=== PATIENT | female | born 1940 ===

== ENCOUNTER 2016-12-04 22:24 | Inpatient (IN) | payer MEDICARE ==
[2016-12-04] MEDS ORDERED: Sodium Chloride 0.9% 1,000 ML IV ONE (22:42)
[2016-12-04] MEDS ORDERED: Sodium Chloride 0.9% 1,000 ML ONE (22:45)
[2016-12-04 23:22] LABS: RBC URINE 3 /hpf (0-3); TRANSITIONAL EPITHIAL < 1 /hpf (0-3); URINE BACTERIA MOD (<OCC); URINE BILIRUBIN NEGATIVE (NEGATIVE); URINE COLOR Yellow (YELLOW); URINE GLUCOSE (UA) 3+ mg/dL (Normal); URINE HYALINE CAST 0-2 /lpf (0-2); URINE KETONE TRACE mg/dL (NEGATIVE); URINE PROTEIN 1+ mg/dL (NEGATIVE); URINE UROBILINOGEN NORMAL mg/dL (0.2-1.0); WBC URINE 45 /hpf (0-5)
[2016-12-04 23:23] LABS: URINE BLOOD TRACE (NEGATIVE); URINE LEUKOCYTE ESTERASE 3+ Leu/uL (Negative)
[2016-12-05 00:10] LABS: BASO % 0.2 % (0.0-2.0); LYMPH # 0.6 K/uL (1.0-4.3); LYMPH % 6.5 % (20.0-40.0); MEAN CELL VOLUME 86.7 fL (81.0-99.0); MEAN CORPUSCULAR HEMOGLOBIN 28.9 pg (27.0-31.0); MEAN CORPUSCULAR HGB CONC 33.3 g/dL (33.0-37.0); MEAN PLATELET VOLUME 7.6 fL (7.2-11.7); MONO # 0.8 K/uL (0.0-0.8); MONO % 8.5 % (0.0-10.0); PLATELET COUNT 161 K/uL (130-400); RED CELL DISTRIBUTION WIDTH 12.4 % (11.5-14.5); WHITE BLOOD COUNT 9.7 K/uL (4.8-10.8)
[2016-12-05 00:21] LABS: CHLORIDE 106 mmol/L (98-107); POTASSIUM 3.5 mmol/L (3.6-5.2); SODIUM 132 mmol/L (132-148)
[2016-12-05 00:24] LABS: ALKALINE PHOSPHATASE 53 U/L (38-126); ALT/SGPT 28 U/L (9-52); AST/SGOT 32 U/L (14-36); BILIRUBIN,TOTAL 0.8 mg/dL (0.2-1.3); BLOOD UREA NITROGEN 12 mg/dL (7-17); CARBON DIOXIDE 17 mmol/L (22-30); GFR AFRICAN-AMERICAN > 60; GLUCOSE,RANDOM 218 mg/dL (65-105); TOTAL PROTEIN 5.2 g/dL (6.3-8.3)
[2016-12-05 00:25] LABS: CALCIUM 6.1 mg/dl (8.6-10.4)
[2016-12-05] MEDS ORDERED: cefTRIAXone IV 1 gm in Dextros 50 ML IVPB STA (00:32)
[2016-12-05 00:33] LABS: INR 1.2
[2016-12-05] MEDS ORDERED: Azithromycin 500 MG in Sodium Chloride 0.9% 250 ML IVPB STA (00:33)
--- NOTE | 2016-12-05 00:36 | C.PDOC ---
History Of Present Illness 76 year old patient brought to the ED by ambulance after a visitor at home noticed she appeared confused. Patient also noted to have facial droop, left sided upper extremity and lower extremity weakness - symptoms resolved on ED arrival. Accucheck was 99 in the field. As per family, patient has a history of DM and asthma. She is compliant with herdiabetes medication, which includes "Metformin and some other pills", and there have been no recent adjustments to hese meds. She admits she did not eat lunch or dinner today; only had breakfast this morning. As per family (translating) patient denies chest pain, shortness of breath, palpitations, headache, dizziness, abdominal pain, nausea/ vomiting/diarrhea, dysuria, visual changes. Time Seen by Provider: 12/04/16 22:35 Chief Complaint (Nursing): Altered Mental Status History Per: Patient, EMS, Family History/Exam Limitations: Language Barrier Onset/Duration Of Symptoms: Mins (prior to arrival) Current Symptoms Are (Timing): Gone Usual Baseline: Alert Oriented Additional History Per: Family Past Medical History Reviewed: Historical Data, Nursing Documentation, Vital Signs Vital Signs: Last Vital Signs Temp 97.4 F L 12/07/16 15:59 Pulse 103 H 12/07/16 15:59 Resp 20 12/07/16 15:59 BP 126/61 12/07/16 15:59 Pulse Ox 97 12/07/16 15:59 - Medical History PMH: Diabetes, HTN Family History: States: No Known Family Hx - Social History Hx Alcohol Use: No Hx Substance Use: No - Immunization History Hx Tetanus Toxoid Vaccination: No Hx Influenza Vaccination: Yes Hx Pneumococcal Vaccination: Yes Review Of Systems Except As Marked, All Systems Reviewed And Found Negative. Constitutional: Negative for: Fever, Chills Cardiovascular: Negative for: Chest Pain, Palpitations Respiratory: Negative for: Cough, Shortness of Breath Gastrointestinal: Negative for: Nausea, Vomiting, Abdominal Pain, Diarrhea Neurological: Positive for: Confusion, Other (left upper and lower extremity weakness, facial droop). Negative for: Headache, Dizziness Physical Exam - Physical Exam Appears: Well, Non-toxic, No Acute Distress Skin: Warm, Dry Head: Atraumatic, Normacephalic Eye(s): bilateral: EOMI, Other (bilateral irregular pupils aprrox 1-2 mm. patient has a history of bilateral eye surgery.) Ear(s): Bilateral: Normal Oral Mucosa: Moist Neck: Normal, Normal ROM, Supple Cardiovascular: Rhythm Regular Respiratory: Normal Breath Sounds, No Rales, No Rhonchi, No Wheezing Gastrointestinal/Abdominal: Normal Exam, Bowel Sounds, Soft, No Tenderness Back: Normal Inspection, No CVA Tenderness, No Vertebral Tenderness Extremity: Normal ROM, No Tenderness, No Pedal Edema, No Calf Tenderness Extremity: Bilateral: Atraumatic Pulses: Left Dorsalis Pedis: Normal, Right Dorsalis Pedis: Normal Neurological/Psych: Oriented x3, Normal Speech, Normal Cognition, Normal Cranial Nerves, No Cerebellar Signs, Normal Motor (5/5 motor strength all ext), Normal Sensation, Normal Reflexes, No Dysarthria, No Romberg, Other ((+)normal finger to nose) ED Course And Treatment - Laboratory Results Result Diagrams: 12/06/16 06:26 12/07/16 07:03 ECG: Interpreted By Me, Viewed By Me (atrial fibrillation 115 bpm, normal axis, T wave inversions V5, V6, no acute ST changes) ECG Interpretation: Abnormal O2 Sat by Pulse Oximetry: 95 (room air) Pulse Ox Interpretation: Normal - Radiology CXR: Interpreted by Me, Viewed By Me (? right sided infiltrate ) - CT Scan/US Head CT Other Rad Studies (CT/US): Read By Radiologist (David Fitch MD), Radiology Report Reviewed CT/US Interpretation: EXAM: CT Head Without Intravenous Contrast. CLINICAL HISTORY: 76 years old, female; Signs and symptoms; Weakness, extremity; Bilateral. TECHNIQUE: Axial computed tomography images of the head/brain without intravenous contrast. This CT exam. was performed using one or more of the following dose reduction techniques: automated exposure. control, adjustment of the mA and/or kV according to patient size, and/or use of iterative. reconstruction technique. COMPARISON: No relevant prior studies available. FINDINGS: Brain: Mild atrophy. No intracranial hemorrhage. No mass. Few scattered subtle foci of decreased. attenuation within periventricular/subcortical white matter. No definite edema. Ventricles: No hydrocephalus. Bones/joints: No acute fracture. Soft tissues: Unremarkable. Vasculature: Atherosclerotic disease of intracranial arteries. Sinuses: Complete opacification of visualized RIGHT maxillary sinus. Small air-fluid level within. LEFT maxillary sinus. Scattered mild mucosal thickening of ethmoid, frontal sinuses. Mastoid air cells: No mastoid effusion. Orbits: Unremarkable as visualized. IMPRESSION: 1. Nonspecific white matter changes. Acute infarction may be CT occult within first 24 hours. If a. focal deficit persists, consider followup CT or MRI for further evaluation. 2. Sinus disease. 3. Incidental/non-acute findings are described above. Progress Note: Blood work, CT head, Chest x-ray and EKG ordered and reviewed. Patient given IV NS bolus. Patient given PO ASA after CT head (-) for bleed. IV rocephin and azithromycin given for pneumonia + UTI. IV Cardizem given for rapid atrial fibrillation, as well as SC Lovenox for new onset A fib. - Physician Consult Information Physician Contacted: Alvarado Rausch Outcome Of Conversation: Discussed patient with Dr. Nick Rausch who agrees with admission to his service. Critical Care Time - Critical Care Note Total Time (in mins): 40 Documented critical care: time excludes all time spent performing seperately billable procedures. NIHSS Stroke Scale - Date/Time Evaluation Performed Date Performed: 12/04/16 Time Performed: 22:25 When Was NIHSS Performed: Baseline - How Severe is the Stoke Level of Consciousness: 0=Alert LOC to Questions: 0=Both comments correct LOC to commands: 0=Obeys both correctly Best Gaze: 0=Normal Visual: 0=No visual loss Facial: 0=Normal Motor Arm - Left: 0=No drift Motor Arm - Right: 0=No drift Motor Leg - Left: 0=No drift Motor Leg - Right: 0=No drift Limb Ataxia: 0=Absent Sensory: 0=Normal Best Language: 0=No aphasia Dysarthia: 0=Normal articulation Extinction & Inattention (Neglect): 0=Normal, no object Score: 0 Severity Of Stroke: 0= No Stroke rTPA Inclusion/Exclusion - Refusal of Treatment Patient Refused Treatment: No - Inclusion Criteria for Altepase Patient is 18 years or Older: Yes Clinical DX Ischemic Stroke Cause Neurological Deficit: No Time of Onset Established Less Than 270 Mins Before TX Begin: Yes Risk/Benefit Discussed With Patient/Family Member Present: No Disposition - Disposition Disposition: HOSPITALIZED Disposition Time: 00:53 Condition: STABLE - Clinical Impression Clinical Impression: TIA (transient ischemic attack), New onset atrial fibrillation, Atrial fibrillation with RVR, UTI (urinary tract infection), Pneumonia, Hypoglycemia - Scribe Statement The provider has reviewed the documentation as recorded by the Scribe Aissatou Rausch Provider Attestation: All medical record entries made by the Scribe were at my direction and personally dictated by me. I have reviewed the chart and agree that the record accurately reflects my personal performance of the history, physical exam, medical decision making, and the department course for this patient. I have also personally directed, reviewed, and agree with the discharge instructions and disposition. Decision To Admit - Pt Status Changed To: Hospital Disposition Of: Inpatient - Admit Certification Admit to Inpatient:: After my assessment, the patient will require hospitalization for at least two midnights. This is because of the severity of symptoms shown, intensity of services needed, and/or the medical risk in this patient being treated as an outpatient. - InPatient: Physician Admission Certification:: see notes - . Bed Request Type: Telemetry Admitting Physician: Alvarado Rausch Patient Diagnosis: TIA (transient ischemic attack), New onset atrial fibrillation, Atrial fibrillation with RVR, UTI (urinary tract infection), Pneumonia, Hypoglycemia
--- NOTE | 2016-12-05 00:36 | C.PDOC ---
Time Seen by Provider: 12/04/16 22:35 Chief Complaint (Nursing): Altered Mental Status Past Medical History Vital Signs: Last Vital Signs Temp 97.3 F L 12/04/16 22:32 Pulse 102 H 12/04/16 22:32 Resp 20 12/04/16 22:32 BP 161/53 H 12/04/16 22:32 Pulse Ox 95 12/04/16 22:32 - Medical History PMH: HTN - Social History Hx Alcohol Use: No Hx Substance Use: No - Immunization History Hx Tetanus Toxoid Vaccination: No Hx Influenza Vaccination: Yes Hx Pneumococcal Vaccination: Yes ED Course And Treatment - Laboratory Results Result Diagrams: 12/04/16 23:55 O2 Sat by Pulse Oximetry: 95
[2016-12-05] MEDS ORDERED: cefTRIAXone IV 1 gm in Dextros 50 ML IVPB ONE (00:37)
[2016-12-05] MEDS ORDERED: Azithromycin 500mg/250ML NS 500 MG/250 ML BAG IVPB ONE (00:37)
[2016-12-05] MEDS ORDERED: Enoxaparin 40 mg Syringe SC ONE (00:43)
[2016-12-05] MEDS ORDERED: Potassium Chloride 20 mEq ER Tab PO STA (00:43)
[2016-12-05 00:50] LABS: NEUTROPHIL 83 % (50-75); TOTAL CELLS COUNTED 100
[2016-12-05] MEDS ORDERED: Potassium Chloride 20 mEq ER Tab PO ONE (00:57)
[2016-12-05] MEDS ORDERED: Enoxaparin 60 mg Syringe ONE (01:04)
[2016-12-05] MEDS: Albuterol-Ipratrop 3 mg / 0.5 (3 ml) UD INH SCH ×3 (07:23→19:32)
--- NOTE | 2016-12-05 08:23 | CT ---
PROCEDURE: CT HEAD WITHOUT CONTRAST. HISTORY: WEAKNESS COMPARISON: None available. TECHNIQUE: Axial computed tomography images were obtained through the head/brain without intravenous contrast. Radiation dose: Total exam DLP = 785.11 mGy-cm. This CT exam was performed using one or more of the following dose reduction techniques: Automated exposure control, adjustment of the mA and/or kV according to patient size, and/or use of iterative reconstruction technique. FINDINGS: HEMORRHAGE: No intracranial hemorrhage. BRAIN: No mass effect or edema. Mild periventricular white matter lucency consistent with chronic microvascular ischemic change. No evidence of acute infarct. VENTRICLES: Unremarkable. No hydrocephalus. CALVARIUM: Unremarkable. PARANASAL SINUSES: Chronic ethmoid sinusitis. Complete opacification of right maxillary antrum. Air-fluid level in left maxillary antrum may reflect acute sinusitis. Please correlate clinically. MASTOID AIR CELLS: Unremarkable as visualized. No inflammatory changes. OTHER FINDINGS: None. IMPRESSION: No intracranial mass, hemorrhage or evidence of acute infarct. Chronic microvascular ischemic change. Chronic paranasal sinusitis with possible acute left maxillary sinusitis. . Please correlate clinically. Preliminary interpretation of this examination was reported by [facility] at 11:43 p.m. on 12/04/2016. There is concurrence of this report with the preliminary interpretation.
--- NOTE | 2016-12-05 08:33 | RAD ---
PROCEDURE: CHEST RADIOGRAPH, 1 VIEW HISTORY: WEAKNESS COMPARISON: None available. FINDINGS: LUNGS: Patchy increased markings at both lung bases ; right greater than left which may represent mild atelectasis and or infiltrate. Clinical correlation. Biapical pleural thickening with upper lobe granulomatous changes. Minimal right midlung atelectasis. Minimal scattered nodularity at the right lung apex. PLEURA: No pneumothorax or pleural fluid seen. CARDIOVASCULAR: Calcification at the aortic knob. Tortuous aorta. OSSEOUS STRUCTURES: Degenerative changes in the spine and shoulders. VISUALIZED UPPER ABDOMEN: Normal. OTHER FINDINGS: None. IMPRESSION: Patchy increased markings at both lung bases ; right greater than left which may represent mild atelectasis and or infiltrate. Clinical correlation. Biapical pleural thickening with upper lobe granulomatous changes. Minimal right midlung atelectasis. Minimal scattered nodularity at the right lung apex.
[2016-12-05] MEDS: Enoxaparin 60 mg Syringe SC SCH (09:33)
[2016-12-05] MEDS: cefTRIAXone IV 1 gm in Dextros 50 ML IVPB SCH (09:33)
[2016-12-05] MEDS ORDERED: LEVOCETIRIZINE DIHYDROCHLORIDE PO SCH (10:00)
--- NOTE | 2016-12-05 11:05 | CON ---
DATE: 12/05/2016 REASON FOR CONSULTATION: Transient left upper and lower extremity ____, and facial droop. HISTORY OF PRESENT ILLNESS: The patient was at home and after a visitor, a friend visited the home, she found the patient confused and had a facial droop and left-sided upper extremity and lower extrem ity weakness. The patient's facial droop resolved upon arrival of the Emergency Room. Accu-Chek was 99 but, as per the nurse, the Accu-Chek was 35 at the arrival of EMS at the field. The patient has a history of diabetes and asthma. The patient did not have her lunch before the episode. She only h ad breakfast in the morning. No associated chest pain, shortness of breath, palpitation or headache. The patient woke up, not confused. The patient stated that she was not confused. No ____ or urine incontinence or tongue biting. VITAL SIGNS: Blood pressure 147/64, pulse 113, respirations 34. PAST MEDICAL HISTORY: Diabetes, hypertension. MEDICATIONS: Metformin, albuterol, rosuvastatin, diltiazem, enoxaparin, pantoprazole, ceftriaxone. REVIEW OF SYSTEMS: As per H and P and ER note. FAMILY HISTORY: Hypertension. MENTAL STATUS: The patient is alert, awake, oriented x 3. Normal naming, repetition and comprehensi on. CRANIAL NERVES: Pupils 3 mm, bilaterally reactive. No facial asymmetry. No field defect. Tongue m idline. Gag intact. Accessory nerve intact. MOTOR: Normal tone in upper and lower extremities. No pronation drift. No tremors, action or resti ng or postural. No myoclonus. Upper extremity: Deltoid, elbow and spool salvager 5/5. Lower extremities: H ip flexion, knee flexion/extension, ankle 5/5. REFLEXES: Deep tendon reflexes 1-2 in upper and lower extremities, plantar flexion both sides ___. SENSORY: Pinprick, light touch, position intact. COORDINATION: [id number] intact. Romberg is negative. The patient is able to stand without diz ziness. IMAGING: CAT scan of the brain did not reveal significant findings. There are chronic periventricul ar white matter changes most likely secondary to small vessel ischemic changes secondary to hypertens ion and diabetes. IMPRESSION: Transient slurred speech, left facial asymmetry and left-sided weakness probably seconda ry to hypoglycemia. Considering the patient with transient ischemic attack and it could be secondary to hypoglycemia, but because of the significant asymmetry on the left side/transient weakness on the left side and the face, I would do MRI and carotid Doppler. My feeling is it is still probably seco ndary to hypoglycemia. Will do EEG as well to rule out seizures. Thank you for the consultation. Dr. Skinner will follow up the patient tomorrow. Jonathan Fernández MD cc: [id number] TT: 12/05/2016 11:04:24 Confirmation # [id number] Dictation # [id number] mn
--- NOTE | 2016-12-05 12:43 | CARD ---
APPROVED REPORT EKG Measurement Heart [id number] <Conclusion> Atrial fibrillation with rapid ventricular response Anteroseptal infarct, age undetermined T wave abnormality, consider lateral ischemia Abnormal ECG
[2016-12-05] MEDS: Azithromycin 500mg/250ML NS 500 MG/250 ML BAG IVPB SCH (13:58)
--- NOTE | 2016-12-05 15:08 | VASCLAB ---
PROCEDURE: HISTORY: CVA COMPARISON: None available. TECHNIQUE: Grayscale and duplex Doppler evaluation of the cervical carotid and vertebral arteries were performed. The common carotid, carotid bifurcations and cervical Internal Carotid Artery (ICA) and proximal External Carotid Artery (ECA) were evaluated. The vertebral arteries were evaluated for gross patency and flow direction. Report prepared by Balta Franks, BS, RVT FINDINGS: RIGHT CAROTID ARTERIES: 1. Common Carotid Artery: No significant focal plaque formation of the right common carotid artery. Maximum Peak Systolic velocity: 80 cm/sec: End-diastolic velocity 16 cm/sec. 2. Carotid Bifurcation: Calcific plaque formation. Maximum Peak Systolic velocity: 109 cm/sec: End-diastolic velocity 17 cm/sec. 3. Internal Carotid Artery: Minimal plaque formation of the right proximal ICA which does not result in hemodynamically significant stenosis. Plaque description: Calcific 3.1. Proximal Segment: Peak systolic velocity 106 cm/sec: End-diastolic velocity 27 cm/sec - % stenosis 0-15% 3.2. Middle Segment: Peak systolic velocity 70 cm/sec: End-diastolic velocity 24 cm/sec - % stenosis 0-15% 3.3. Distal Segment: Peak systolic velocity 86 cm/sec: End-diastolic velocity 21 cm/sec - % stenosis 0-15% 4. External Carotid Artery: No significant focal plaque formation. Peak systolic velocity 218 cm/sec 5. ICA/CCA Ratio: 1.4 LEFT CAROTID ARTERIES: 1. Common Carotid Artery: Minimal plaque formation of the left CCA which does not result in hemodynamically significant stenosis. Maximum Peak Systolic velocity: 86 cm/sec: End-diastolic velocity 19 cm/sec. 2. Carotid Bifurcation: Calcific plaque formation. Maximum Peak Systolic velocity: 104 cm/sec: End-diastolic velocity 25 cm/sec. 3. Internal Carotid Artery: Minimal plaque formation of the left proximal ICA which does not result in hemodynamically significant stenosis. Plaque description: Calcific 3.1. Proximal Segment: Peak systolic velocity 95 cm/sec: End-diastolic velocity 28 cm/sec - % stenosis 0-15% 3.2. Middle Segment: Peak systolic velocity 118 cm/sec: End-diastolic velocity 38 cm/sec - % stenosis 0-15% 3.3. Distal Segment: Peak systolic velocity 88 cm/sec: End-diastolic velocity 25 cm/sec - % stenosis 0-15% 4. External Carotid Artery: No significant focal plaque formation. Peak systolic velocity 264 cm/sec 5. ICA/CCA Ratio: 1.4 VERTEBRAL ARTERIES: 1. Right Vertebral Artery: The right vertebral artery flow direction is antegrade. 2. Left Vertebral Artery: The left vertebral artery flow direction is antegrade. OTHER FINDINGS: 1. Right Brachial Blood pressure: 128 mmHg. 2. Left Brachial Blood pressure: 120 mmHg. IMPRESSION: RIGHT: Duplex scan does not suggest hemodynamically significant stenosis of the right extracranial carotid arteries. LEFT: Duplex scan does not suggest hemodynamically significant stenosis of the left extracranial carotid arteries.
--- NOTE | 2016-12-05 17:27 | CP.PCM.HP ---
Past Patient History - Infectious Disease Hx of Infectious Diseases: None - Past Medical History & Family History Past Medical History?: Yes - Past Social History Smoking Status: Never Smoked - CARDIAC Hx Cardiac Disorders: Yes Hx Hypertension: Yes - PULMONARY Hx Respiratory Disorders: No - NEUROLOGICAL Hx Neurological Disorder: No - HEENT Hx HEENT Problems: Yes Other/Comment: operation in both eyes - RENAL Hx Chronic Kidney Disease: No - ENDOCRINE/METABOLIC Hx Endocrine Disorders: No Hx Diabetes Mellitus Type 2: Yes - HEMATOLOGICAL/ONCOLOGICAL Hx Blood Disorders: No - INTEGUMENTARY Hx Dermatological Problems: No - MUSCULOSKELETAL/RHEUMATOLOGICAL Hx Musculoskeletal Disorders: No Hx Falls: No - GASTROINTESTINAL Hx Gastrointestinal Disorders: No - PSYCHIATRIC Hx Psychophysiologic Disorder: No Hx Substance Use: No - SURGICAL HISTORY Hx Surgeries: Yes Hx Hysterectomy: Yes - ANESTHESIA Hx Anesthesia: Yes Hx Anesthesia Reactions: No Meds Allergies/Adverse Reactions: Allergies Allergy/AdvReac Type Severity Reaction Status Date / Time No Known Allergies Allergy Verified 12/04/16 22:42 Physical Exam - Constitutional Appears: Well - Head Exam Head Exam: ATRAUMATIC, NORMAL INSPECTION, NORMOCEPHALIC - Eye Exam Eye Exam: EOMI, Normal appearance, PERRL Pupil Exam: NORMAL ACCOMODATION, PERRL - ENT Exam ENT Exam: Mucous Membranes Moist, Normal Exam - Neck Exam Neck exam: Positive for: Normal Inspection - Respiratory Exam Respiratory Exam: Decreased Breath Sounds - Cardiovascular Exam Cardiovascular Exam: REGULAR RHYTHM, +S1, +S2 - GI/Abdominal Exam GI & Abdominal Exam: Diminished Bowel Sounds, Soft - Rectal Exam Rectal Exam: Deferred Results - Vital Signs Recent Vital Signs: Last Vital Signs Temp 97.9 F 12/05/16 15:59 Pulse 107 H 12/05/16 16:00 Resp 18 12/05/16 15:59 BP 113/62 12/05/16 15:59 Pulse Ox 95 12/05/16 15:59 - Labs Result Diagrams: 12/04/16 23:55 12/04/16 23:55 Labs: Laboratory Results - last 24 hr 12/05/16 12/05/16 12/05/16 06:40 12:23 16:18 POC Glucose (mg/dL) 97 238 H 419 H*
[2016-12-05] MEDS ORDERED: (Novolog) Insulin Aspart, Recombinant 100 u/ml 10 ml vial SC ONE (17:57)
[2016-12-05] MEDS: (Novolog) Insulin Aspart, Recombinant 100 u/ml 10 ml vial SC SCH (22:06)
--- NOTE | 2016-12-05 23:06 | CP.PCM.CON ---
History of Present Illness - History of Present Illness History of Present Illness: Patient seen and evaluated for CVA and new onset A Fib ECHO and Carotid pending History Of Present Illness 76 year old patient is brought to the ED by ambulance after a visitor at home noticed she was confused. Patient also had a facial droop, left sided upper extremity and lower extremity weakness. Patient's facial droop and weakness resolved upon arrival in the ED. Her accucheck was 99 in the field. As per family, patient has a history of diabetes and asthma. She has been taking her diabetes medication which includes "Metformin and some other pills." Patient did not eat lunch or dinner today; she only had breakfast this morning. As per family, patient denies chest pain, shortness of breath, headache, dizziness or palpitations. Chief Complaint: Altered Mental Status History Per: Patient, Family History/Exam Limitations: Language Barrier Onset/Duration Of Symptoms: Mins (prior to arrival) Current Symptoms Are (Timing): Gone Usual Baseline: Alert Oriented Additional History Per: Family Past Medical History Reviewed: Historical Data, Nursing Documentation, Vital Signs - Medical History PMH: HTN Family History: States: No Known Family Hx - Social History Hx Alcohol Use: No Hx Substance Use: No - Immunization History Hx Tetanus Toxoid Vaccination: No Hx Influenza Vaccination: Yes Hx Pneumococcal Vaccination: Yes Review Of Systems Except As Marked, All Systems Reviewed And Found Negative. Cardiovascular: Negative for: Chest Pain, Palpitations Respiratory: Negative for: Shortness of Breath Neurological: Positive for: Confusion, Other (left upper and lower extremity weakness, facial droop). Negative for: Headache, Dizziness Physical Exam - Physical Exam Appears: Non-toxic, No Acute Distress Skin: Warm, Dry Head: Atraumatic, Normacephalic Eye(s): bilateral: EOMI, Other (bilateral irregular pupils about 1-2 mm. patient has a history of bilateral eye surgery.) Ear(s): Bilateral: Normal Nose: Normal Oral Mucosa: Moist Throat: Normal Neck: Normal ROM, Supple Chest: Symmetrical Respiratory: Normal Breath Sounds, No Rales, No Rhonchi, No Wheezing Gastrointestinal/Abdominal: Soft, No Tenderness Back: Normal Inspection, No CVA Tenderness, No Vertebral Tenderness Extremity: Normal ROM Neurological/Psych: Oriented x3, Normal Speech, Normal Cranial Nerves, Normal Motor, Normal Sensation, No Dysarthria, Other ((+)normal strength (5 out of 5) (+)normal finger to nose motion) Past Patient History - Infectious Disease Hx of Infectious Diseases: None - Past Medical History & Family History Past Medical History?: Yes - Past Social History Smoking Status: Never Smoked - CARDIAC Hx Cardiac Disorders: Yes Hx Hypertension: Yes - PULMONARY Hx Respiratory Disorders: No - NEUROLOGICAL Hx Neurological Disorder: No - HEENT Hx HEENT Problems: Yes Other/Comment: operation in both eyes - RENAL Hx Chronic Kidney Disease: No - ENDOCRINE/METABOLIC Hx Endocrine Disorders: No Hx Diabetes Mellitus Type 2: Yes - HEMATOLOGICAL/ONCOLOGICAL Hx Blood Disorders: No - INTEGUMENTARY Hx Dermatological Problems: No - MUSCULOSKELETAL/RHEUMATOLOGICAL Hx Musculoskeletal Disorders: No Hx Falls: No - GASTROINTESTINAL Hx Gastrointestinal Disorders: No - PSYCHIATRIC Hx Psychophysiologic Disorder: No Hx Substance Use: No - SURGICAL HISTORY Hx Surgeries: Yes Hx Hysterectomy: Yes - ANESTHESIA Hx Anesthesia: Yes Hx Anesthesia Reactions: No Meds Allergies/Adverse Reactions: Allergies Allergy/AdvReac Type Severity Reaction Status Date / Time No Known Allergies Allergy Verified 12/04/16 22:42 - Medications Medications: Current Medications Albuterol/Ipratropium (Duoneb 3 Mg/0.5 Mg (3 Ml) Ud) 3 ml INH RQ6 [facility] Last Admin: 12/05/16 19:32 Dose: 3 ml Diltiazem HCl (Cardizem) 30 mg PO Q8 [facility] Last Admin: 12/05/16 22:07 Dose: 30 mg Enoxaparin Sodium (Lovenox) 60 mg SC DAILY [facility] Last Admin: 12/05/16 09:33 Dose: 60 mg Guaifenesin (Robitussin) 100 mg PO Q4H PRN PRN Reason: Cough Ceftriaxone Sodium (Rocephin Iv 1 Gm Duplex) 50 mls @ 100 mls/hr IVPB DAILY [facility] Last Admin: 12/05/16 09:33 Dose: 100 mls/hr Azithromycin (Zithromax 500mg In Ns Addvantage) 500 mg in 250 mls @ 167 mls/hr IVPB Q24H [facility] Last Admin: 12/05/16 13:58 Dose: 167 mls/hr Insulin Aspart (Novolog) 0 unit SC ACHS [facility] PRN Reason: Protocol Last Admin: 12/05/16 22:06 Dose: 2 unit Loratadine (Claritin) 10 mg PO DAILY [facility] Montelukast Sodium (Singulair) 10 mg PO [facility] Last Admin: 12/05/16 22:07 Dose: 10 mg Pantoprazole Sodium (Protonix Inj) 40 mg IVP DAILY [facility] Last Admin: 12/05/16 09:33 Dose: 40 mg Pneumococcal Polyvalent Vaccine (Pneumovax 23 Vaccine) 0.5 ml SC .ONCE ONE Stop: 12/06/16 10:01 Rosuvastatin Calcium (Crestor) 10 mg PO [facility] Last Admin: 12/05/16 22:07 Dose: 10 mg Results - Vital Signs Recent Vital Signs: Last Vital Signs Temp 97.9 F 12/05/16 15:59 Pulse 89 12/05/16 22:07 Resp 18 12/05/16 22:07 BP 125/65 12/05/16 22:07 Pulse Ox 95 12/05/16 15:59 - Labs Result Diagrams: 12/06/16 06:26 12/06/16 06:26 Labs: Laboratory Results - last 24 hr 12/05/16 12/05/16 12/05/16 06:40 12:23 16:18 POC Glucose (mg/dL) 97 238 H 419 H* 12/05/16 21:04 POC Glucose (mg/dL) 381 H Assessment & Plan - Assessment and Plan (Free Text) Assessment: A Fib HTN CVA Recommend anticoagulation for A Fib
[2016-12-06] MEDS: guaiFENesin 100 mg/5 ml Syrup UD PO PRN ×2 (01:37→21:41)
[2016-12-06] MEDS: Albuterol-Ipratrop 3 mg / 0.5 (3 ml) UD INH SCH ×4 (01:42→19:52)
[2016-12-06 06:41] LABS: BASO % 0.6 % (0.0-2.0); EOS # 0.2 K/uL (0.0-0.7); EOS % 3.5 % (0.0-4.0); HEMATOCRIT 30.4 % (34.0-47.0); LYMPH # 1.7 K/uL (1.0-4.3); LYMPH % 24.4 % (20.0-40.0); MEAN CELL VOLUME 85.5 fL (81.0-99.0); MEAN CORPUSCULAR HEMOGLOBIN 28.2 pg (27.0-31.0); MEAN CORPUSCULAR HGB CONC 32.9 g/dL (33.0-37.0); MEAN PLATELET VOLUME 7.7 fL (7.2-11.7); MONO # 0.7 K/uL (0.0-0.8); MONO % 9.7 % (0.0-10.0); NRBC % 0.1 % (0.0-2.0); RED CELL DISTRIBUTION WIDTH 12.8 % (11.5-14.5); WHITE BLOOD COUNT 6.8 K/uL (4.8-10.8)
[2016-12-06 06:59] LABS: CHLORIDE 103 mmol/L (98-107); SODIUM 134 mmol/L (132-148)
[2016-12-06 07:02] LABS: BLOOD UREA NITROGEN 8 mg/dL (7-17); CARBON DIOXIDE 21 mmol/L (22-30); CHOLESTEROL 116 mg/dL (0-199); GFR AFRICAN-AMERICAN > 60; GLUCOSE,RANDOM 212 mg/dL (65-105)
[2016-12-06 07:03] LABS: CALCIUM 7.7 mg/dl (8.6-10.4)
[2016-12-06] MEDS: (Novolog) Insulin Aspart, Recombinant 100 u/ml 10 ml vial SC SCH ×4 (08:33→21:37)
[2016-12-06] MEDS ORDERED: Pneumococcal 23-Valent Vaccine SC ONE (10:00)
[2016-12-06] MEDS: Potassium Chloride 20 mEq ER Tab PO SCH (10:33)
[2016-12-06] MEDS: cefTRIAXone IV 1 gm in Dextros 50 ML IVPB SCH (10:34)
[2016-12-06] MEDS: Enoxaparin 60 mg Syringe SC SCH (10:35)
[2016-12-06] MEDS: Azithromycin 500mg/250ML NS 500 MG/250 ML BAG IVPB SCH (11:46)
--- NOTE | 2016-12-06 12:32 | CARD ---
APPROVED REPORT EXAM: Two-dimensional and M-mode echocardiogram with Doppler and color Doppler. Other Information Quality : GoodRhythm : NSR INDICATION CVA/TIA Atrial Fibrillation M-Mode DIMENSIONS RVDd1.37 (2.1-3.2cm)Left Atrium (MM)4.26 (2.5-4.0cm) IVSd0.85 (0.7-1.1cm)Aortic Root2.83 (2.2-3.7cm) LVDd4.56 (4.0-5.6cm)Aortic Cusp Exc.1.59 (1.5-2.0cm) PWd0.91 (0.7-1.1cm)FS (%) 25 % LVDs3.42 (2.0-3.8cm)LVEF (%)50 (>50%) Aortic Valve AoV Peak Jpcvlwio914.5cm/Sarahy Peak GR.12mmHgAI P 1/2 Faly521kk Mitral Valve MV E Fmusuefm857.4cm/sMV A Shtucfnu823.1cm/sE/A ratio1.0 TDI E/Lateral E'0.0E/Medial E'0.0 Tricuspid Valve TR Peak Ivyjqyar737os/sTR Peak Gr.49ekGiNDBM52byJf LEFT VENTRICLE The left ventricle is normal size. There is normal left ventricular wall thickness. The left ventricular function is normal. The left ventricular ejection fraction is within the normal range. There is normal LV segmental wall motion. The left ventricular diastolic function is normal. No left ventricle thrombus noted on this study. There is no ventricular septal defect visualized. There is no left ventricular aneurysm. There is no mass noted in the left ventricle. RIGHT VENTRICLE The right ventricle is normal size. There is normal right ventricular wall thickness. ATRIA The left atrium is mildly dilated. The right atrium size is normal. The interatrial septum is intact with no evidence for an atrial septal defect. AORTIC VALVE The aortic valve is calcified and displays decreased opening. There is mild aortic regurgitation. There is no aortic valvular stenosis. There is no aortic valvular vegetation. MITRAL VALVE The mitral valve is mildly thickened but opens well. There is no mitral valve stenosis. Mitral regurgitation is moderate to severe. TRICUSPID VALVE The tricuspid valve is normal in structure. There is trace tricuspid regurgitation. There is mild pulmonary hypertension. PULMONIC VALVE The pulmonary valve is normal in structure. There is no pulmonic valvular regurgitation. GREAT VESSELS The aortic root is normal in size. The ascending aorta is normal in size. The pulmonary artery is normal. The IVC is normal in size and collapses >50% with inspiration. PERICARDIAL EFFUSION There is no pericardial effusion. <Conclusion> The left atrium is mildly dilated. The aortic valve is calcified and displays decreased opening. There is mild aortic regurgitation. Mitral regurgitation is moderate to severe. There is trace tricuspid regurgitation. There is mild pulmonary hypertension. LVEF IS 50%.
--- NOTE | 2016-12-06 14:49 | MRI ---
PROCEDURE: MRI BRAIN WITHOUT CONTRAST HISTORY: slurred speech COMPARISON: None. TECHNIQUE: Multiplanar, multisequence MR images of the brain were obtained without intravenous contrast enhancement. FINDINGS: HEMORRHAGE: None DWI: No evidence of an acute or early subacute infarction. BRAIN PARENCHYMA: No mass effect or edema. Scattered foci of white matter signal abnormality, statistically most likely secondary to chronic microvascular ischemic disease. Mild atrophy is noted with prominence of the ventricles and sulci. VENTRICLES: Unremarkable. No hydrocephalus. CRANIUM: Unremarkable. ORBITS: Grossly unremarkable. PARANASAL SINUSES/MASTOIDS: Extensive bilateral maxillary sinus disease with bilateral air-fluid levels. VASCULAR SYSTEM: Skull base flow voids intact. OTHER FINDINGS: None. IMPRESSION: Scattered foci of white matter signal abnormality, statistically most likely secondary to chronic microvascular ischemic disease. Mild atrophy is noted with prominence of the ventricles and sulci.
--- NOTE | 2016-12-06 18:28 | CP.PCM.PN ---
Subjective - Date & Time of Evaluation Date of Evaluation: 12/06/16 Objective - Vital Signs/Intake and Output Vital Signs (last 24 hours): Temp Pulse Resp BP Pulse Ox 97.3 F L 98 H 20 126/64 97 12/06/16 16:00 12/06/16 16:00 12/06/16 16:00 12/06/16 16:00 12/06/16 16:00 Intake and Output: 12/06/16 12/06/16 06:59 18:59 Intake Total 320 Balance 320 - Medications Medications: Current Medications Albuterol/Ipratropium (Duoneb 3 Mg/0.5 Mg (3 Ml) Ud) 3 ml INH RQ6 [facility] Last Admin: 12/06/16 14:36 Dose: 3 ml Clopidogrel Bisulfate (Plavix) 75 mg PO DAILY [facility] Diltiazem HCl (Cardizem) 30 mg PO Q6 [facility] Last Admin: 12/06/16 17:58 Dose: 30 mg Enoxaparin Sodium (Lovenox) 60 mg SC DAILY [facility] Last Admin: 12/06/16 10:35 Dose: 60 mg Guaifenesin (Robitussin) 100 mg PO Q4H PRN PRN Reason: Cough Last Admin: 12/06/16 01:37 Dose: 100 mg Ceftriaxone Sodium (Rocephin Iv 1 Gm Duplex) 50 mls @ 100 mls/hr IVPB DAILY [facility] Last Admin: 12/06/16 10:34 Dose: 100 mls/hr Azithromycin (Zithromax 500mg In Ns Addvantage) 500 mg in 250 mls @ 167 mls/hr IVPB Q24H [facility] Last Admin: 12/06/16 11:46 Dose: 167 mls/hr Insulin Aspart (Novolog) 0 unit SC ACHS [facility] PRN Reason: Protocol Last Admin: 12/06/16 17:59 Dose: 2 unit Loratadine (Claritin) 10 mg PO DAILY [facility] Last Admin: 12/06/16 10:33 Dose: 10 mg Montelukast Sodium (Singulair) 10 mg PO HS [facility] Last Admin: 12/05/16 22:07 Dose: 10 mg Pantoprazole Sodium (Protonix Inj) 40 mg IVP DAILY [facility] Last Admin: 12/06/16 10:33 Dose: 40 mg Potassium Chloride (K-Dur 20 Meq Er Tab) 20 meq PO DAILY [facility] Last Admin: 12/06/16 10:33 Dose: 20 meq Rosuvastatin Calcium (Crestor) 10 mg PO HS [facility] Last Admin: 12/05/16 22:07 Dose: 10 mg - Labs Labs: 12/06/16 06:26 12/06/16 06:26 PT 12.9 SECONDS (9.7-12.2) H 12/04/16 23:55 INR 1.2 12/04/16 23:55 APTT 28 SECONDS (21-34) 12/04/16 23:55
--- NOTE | 2016-12-06 19:00 | PN ---
DATE: 12/06/2016 REASON FOR ADMISSION: Transient ischemic attack. SUBJECTIVE: The patient was seen by Dr. Cheatham and initial workup for stroke all done at present. PHYSICAL EXAMINATION: VITAL SIGNS: Blood pressure 126/64, mean arterial pressure of 84, respiratory rate 16, temperature 97.3 with a pulse rate of 98, irregular. NEUROLOGIC: The patient is awake, alert and oriented to person, place and time. Speech is clear. No sign of asymmetry of the face. EXTREMITIES: Moving all 4 extremities against gravity. 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 LABORATORY DATA: Her workup has been reviewed. 1. Shows MRI with small vessel disease. 2. Carotid Doppler: No significant stenosis. 3. Echocardiogram shows aortic calcification with AI and ejection fraction 50. FURTHER RECOMMENDATION FROM NEUROLOGY: 1. The patient should be on antiplatelets and Plavix is given for the same proposed. 2. Diabetic control. 3. Considering her risk factors, patient should have a polysomnogram to rule out sleep-related breathing disorder. The patient will be followed while she is in the hospital. The patient's condition also discussed with terrazzo worker and further management also discussed. Vinay Skinner MD cc: [id number] TT: 12/06/2016 18:59:42 Confirmation # [id number] Dictation # [id number] MTDD
--- NOTE | 2016-12-06 21:04 | CP.PCM.PN ---
Subjective - Date & Time of Evaluation Date of Evaluation: 12/06/16 Time of Evaluation: 16:30 - Subjective Subjective: Patient seen and evaluated Comfortable Review Of Systems Except As Marked, All Systems Reviewed And Found Negative. Cardiovascular: Negative for: Chest Pain, Palpitations Respiratory: Negative for: Shortness of Breath Neurological: Positive for: Confusion, Other (left upper and lower extremity weakness, facial droop). Negative for: Headache, Dizziness Physical Exam - Physical Exam Appears: Non-toxic, No Acute Distress Skin: Warm, Dry Head: Atraumatic, Normacephalic Eye(s): bilateral: EOMI, Other (bilateral irregular pupils about 1-2 mm. patient has a history of bilateral eye surgery.) Ear(s): Bilateral: Normal Nose: Normal Oral Mucosa: Moist Throat: Normal Neck: Normal ROM, Supple Chest: Symmetrical Respiratory: Normal Breath Sounds, No Rales, No Rhonchi, No Wheezing Gastrointestinal/Abdominal: Soft, No Tenderness Back: Normal Inspection, No CVA Tenderness, No Vertebral Tenderness Extremity: Normal ROM Neurological/Psych: Oriented x3, Normal Speech, Normal Cranial Nerves, Normal Motor, Normal Sensation, No Dysarthria, Other ((+)normal strength (5 out of 5) (+)normal finger to nose motion) Objective - Vital Signs/Intake and Output Vital Signs (last 24 hours): Temp Pulse Resp BP Pulse Ox 97.3 F L 98 H 20 126/64 97 12/06/16 16:00 12/06/16 16:00 12/06/16 16:00 12/06/16 16:00 12/06/16 16:00 - Medications Medications: Current Medications Albuterol/Ipratropium (Duoneb 3 Mg/0.5 Mg (3 Ml) Ud) 3 ml INH RQ6 [facility] Last Admin: 12/06/16 19:52 Dose: 3 ml Clopidogrel Bisulfate (Plavix) 75 mg PO DAILY [facility] Diltiazem HCl (Cardizem) 30 mg PO Q6 [facility] Last Admin: 12/06/16 17:58 Dose: 30 mg Enoxaparin Sodium (Lovenox) 60 mg SC DAILY [facility] Last Admin: 12/06/16 10:35 Dose: 60 mg Guaifenesin (Robitussin) 100 mg PO Q4H PRN PRN Reason: Cough Last Admin: 12/06/16 01:37 Dose: 100 mg Ceftriaxone Sodium (Rocephin Iv 1 Gm Duplex) 50 mls @ 100 mls/hr IVPB DAILY [facility] Last Admin: 12/06/16 10:34 Dose: 100 mls/hr Azithromycin (Zithromax 500mg In Ns Addvantage) 500 mg in 250 mls @ 167 mls/hr IVPB Q24H [facility] Last Admin: 12/06/16 11:46 Dose: 167 mls/hr Insulin Aspart (Novolog) 0 unit SC ACHS [facility] PRN Reason: Protocol Last Admin: 12/06/16 17:59 Dose: 2 unit Loratadine (Claritin) 10 mg PO DAILY [facility] Last Admin: 12/06/16 10:33 Dose: 10 mg Montelukast Sodium (Singulair) 10 mg PO HS [facility] Last Admin: 12/05/16 22:07 Dose: 10 mg Pantoprazole Sodium (Protonix Inj) 40 mg IVP DAILY [facility] Last Admin: 12/06/16 10:33 Dose: 40 mg Potassium Chloride (K-Dur 20 Meq Er Tab) 20 meq PO DAILY [facility] Last Admin: 12/06/16 10:33 Dose: 20 meq Rosuvastatin Calcium (Crestor) 10 mg PO HS [facility] Last Admin: 12/05/16 22:07 Dose: 10 mg - Labs Labs: 12/06/16 06:26 12/06/16 06:26 PT 12.9 SECONDS (9.7-12.2) H 12/04/16 23:55 INR 1.2 12/04/16 23:55 APTT 28 SECONDS (21-34) 12/04/16 23:55 Assessment and Plan - Assessment and Plan (Free Text) Assessment: A Fib Patient started on Eliquis 5mg po bid Discussed with the patient about the benefits and the risks of anticoagulation for stroke prevention Patient agreed to take the medication as prescribed Patient advised to watch for any bleeding and report it to the physician or call 911 if heavy bleeding
[2016-12-07] MEDS: Albuterol-Ipratrop 3 mg / 0.5 (3 ml) UD INH SCH ×3 (01:45→13:52)
[2016-12-07 07:43] LABS: CHLORIDE 101 mmol/L (98-107); POTASSIUM 4.8 mmol/L (3.6-5.2); SODIUM 134 mmol/L (132-148)
[2016-12-07 07:46] LABS: BLOOD UREA NITROGEN 7 mg/dL (7-17); CARBON DIOXIDE 24 mmol/L (22-30); GFR AFRICAN-AMERICAN > 60
[2016-12-07 07:47] LABS: GLUCOSE,RANDOM 219 mg/dL (65-105)
[2016-12-07] MEDS: (Novolog) Insulin Aspart, Recombinant 100 u/ml 10 ml vial SC SCH ×3 (08:00→17:18)
[2016-12-07] MEDS: cefTRIAXone IV 1 gm in Dextros 50 ML IVPB SCH (09:12)
[2016-12-07] MEDS: Potassium Chloride 20 mEq ER Tab PO SCH (09:12)
--- NOTE | 2016-12-07 09:15 | PN ---
DATE: 12/07/2016 TIME OF EVALUATION: 7:20 a.m. NEUROLOGICAL PROBLEM: Transient ischemic attack which is resolved, ? partial complex seizures. PHYSICAL EXAMINATION: VITAL SIGNS: Blood pressure 139/74, mean arterial pressure of 95, respiratory rate 18, temperature 9 7.5 with a pulse rate 95. NEUROLOGIC: The patient is awake, alert, ambulatory. Cranial nerves: No focality noted. Her walki ng is also symmetric on either side. The rest of the examination is unchanged. The patient is tolerating Plavix which was started yesterday. It seems it was discontinued and the p atient is on Eliquis at present. RECOMMENDATIONS: Recommended electroencephalogram is still pending. Because of cardiac cause, the p atient was started on Eliquis for stroke prophylaxis. Agree with the management. The patient will b e followed closely while she is in the hospital. Vinay Skinner MD cc: [id number] TT: 12/07/2016 09:15:09 Confirmation # [id number] Dictation # [id number] mn
[2016-12-07] MEDS: Azithromycin 500mg/250ML NS 500 MG/250 ML BAG IVPB SCH (13:08)
--- NOTE | 2016-12-07 15:53 | CP.PCM.PN ---
Subjective - Date & Time of Evaluation Date of Evaluation: 12/07/16 Time of Evaluation: 15:50 - Subjective Subjective: 76 Y/O FEMALE SEEN AND EXAMINED TODAY BY DR TIPTON PMHX ADMITTED FOR AFIB RX FOR CARDIZEM 30 MG PO, ELIQUIS 5 MG PO BID, ROSUVASTATIN 20 MG PO DAILY, AUGMENTIN 875 MG PO BID BY DR TIPTON PT DENIES ANY CP, SOB, PALPITATION, RESP EASY AND UNLABORED. F/U W/DR TIPTON, CARDIOLOGY AND NEUROLOGY IN THE OFFICE RETURN TO ED IF ANY WORSENING S/S AGREE W/POC, VERBALIZE UNDERSTANDING Objective - Vital Signs/Intake and Output Vital Signs (last 24 hours): Temp Pulse Resp BP Pulse Ox 97.8 F 97 H 17 137/77 98 12/07/16 07:20 12/07/16 07:25 12/07/16 07:20 12/07/16 13:00 12/07/16 07:20 Intake and Output: 12/07/16 12/07/16 06:59 18:59 Intake Total 240 Balance 240 - Medications Medications: Current Medications Albuterol/Ipratropium (Duoneb 3 Mg/0.5 Mg (3 Ml) Ud) 3 ml INH RQ6 [facility] Last Admin: 12/07/16 13:52 Dose: 3 ml Apixaban (Eliquis) 5 mg PO BID [facility] Last Admin: 12/07/16 09:54 Dose: 5 mg Diltiazem HCl (Cardizem) 30 mg PO Q6 [facility] Last Admin: 12/07/16 13:02 Dose: 30 mg Guaifenesin (Robitussin) 100 mg PO Q4H PRN PRN Reason: Cough Last Admin: 12/06/16 21:41 Dose: 100 mg Ceftriaxone Sodium (Rocephin Iv 1 Gm Duplex) 50 mls @ 100 mls/hr IVPB DAILY [facility] Last Admin: 12/07/16 09:12 Dose: 100 mls/hr Azithromycin (Zithromax 500mg In Ns Addvantage) 500 mg in 250 mls @ 167 mls/hr IVPB Q24H [facility] Last Admin: 12/07/16 13:08 Dose: 167 mls/hr Insulin Aspart (Novolog) 0 unit SC ACHS [facility] PRN Reason: Protocol Last Admin: 12/07/16 13:04 Dose: 6 unit Loratadine (Claritin) 10 mg PO DAILY [facility] Last Admin: 12/07/16 09:12 Dose: 10 mg Montelukast Sodium (Singulair) 10 mg PO HS [facility] Last Admin: 12/06/16 21:38 Dose: 10 mg Pantoprazole Sodium (Protonix Inj) 40 mg IVP DAILY [facility] Last Admin: 12/07/16 09:13 Dose: 40 mg Potassium Chloride (K-Dur 20 Meq Er Tab) 20 meq PO DAILY [facility] Last Admin: 12/07/16 09:12 Dose: 20 meq Rosuvastatin Calcium (Crestor) 10 mg PO HS [facility] Last Admin: 12/06/16 21:37 Dose: 10 mg - Labs Labs: 12/06/16 06:26 12/07/16 07:03 PT 12.9 SECONDS (9.7-12.2) H 12/04/16 23:55 INR 1.2 12/04/16 23:55 APTT 28 SECONDS (21-34) 12/04/16 23:55
[2016-12-07 16:01] VITALS: BP 126/61; PULSE 103; RESP 20; TEMP 97.4
--- NOTE | 2016-12-07 17:04 | CP.PCM.PN ---
Subjective - Date & Time of Evaluation Date of Evaluation: 12/07/16 Time of Evaluation: 10:20 - Subjective Subjective: clinically same Objective - Vital Signs/Intake and Output Vital Signs (last 24 hours): Temp Pulse Resp BP Pulse Ox 97.4 F L 103 H 20 126/61 97 12/07/16 15:59 12/07/16 15:59 12/07/16 15:59 12/07/16 15:59 12/07/16 15:59 Intake and Output: 12/07/16 12/07/16 06:59 18:59 Intake Total 240 Balance 240 - Medications Medications: Current Medications Albuterol/Ipratropium (Duoneb 3 Mg/0.5 Mg (3 Ml) Ud) 3 ml INH RQ6 [facility] Last Admin: 12/07/16 13:52 Dose: 3 ml Apixaban (Eliquis) 5 mg PO BID [facility] Last Admin: 12/07/16 09:54 Dose: 5 mg Diltiazem HCl (Cardizem) 30 mg PO Q6 [facility] Last Admin: 12/07/16 13:02 Dose: 30 mg Guaifenesin (Robitussin) 100 mg PO Q4H PRN PRN Reason: Cough Last Admin: 12/06/16 21:41 Dose: 100 mg Ceftriaxone Sodium (Rocephin Iv 1 Gm Duplex) 50 mls @ 100 mls/hr IVPB DAILY [facility] Last Admin: 12/07/16 09:12 Dose: 100 mls/hr Azithromycin (Zithromax 500mg In Ns Addvantage) 500 mg in 250 mls @ 167 mls/hr IVPB Q24H [facility] Last Admin: 12/07/16 13:08 Dose: 167 mls/hr Insulin Aspart (Novolog) 0 unit SC ACHS [facility] PRN Reason: Protocol Last Admin: 12/07/16 13:04 Dose: 6 unit Loratadine (Claritin) 10 mg PO DAILY [facility] Last Admin: 12/07/16 09:12 Dose: 10 mg Montelukast Sodium (Singulair) 10 mg PO HS [facility] Last Admin: 12/06/16 21:38 Dose: 10 mg Pantoprazole Sodium (Protonix Inj) 40 mg IVP DAILY [facility] Last Admin: 12/07/16 09:13 Dose: 40 mg Potassium Chloride (K-Dur 20 Meq Er Tab) 20 meq PO DAILY [facility] Last Admin: 12/07/16 09:12 Dose: 20 meq Rosuvastatin Calcium (Crestor) 10 mg PO HS [facility] Last Admin: 12/06/16 21:37 Dose: 10 mg - Labs Labs: 12/06/16 06:26 12/07/16 07:03 PT 12.9 SECONDS (9.7-12.2) H 12/04/16 23:55 INR 1.2 12/04/16 23:55 APTT 28 SECONDS (21-34) 12/04/16 23:55 - Constitutional Appears: Well - Head Exam Head Exam: ATRAUMATIC, NORMAL INSPECTION, NORMOCEPHALIC - Eye Exam Eye Exam: EOMI, Normal appearance, PERRL Pupil Exam: NORMAL ACCOMODATION, PERRL - ENT Exam ENT Exam: Mucous Membranes Moist, Normal Exam - Neck Exam Neck Exam: Full ROM, Normal Inspection. absent: Lymphadenopathy - Respiratory Exam Respiratory Exam: Decreased Breath Sounds - Cardiovascular Exam Cardiovascular Exam: REGULAR RHYTHM, +S1, +S2 - GI/Abdominal Exam GI & Abdominal Exam: Soft, Diminished Bowel Sounds - Rectal Exam Rectal Exam: Deferred
--- NOTE | 2016-12-07 22:12 | CP.PCM.PN ---
Subjective - Date & Time of Evaluation Date of Evaluation: 12/07/16 Time of Evaluation: 07:00 - Subjective Subjective: Patient seen and evaluated Comfortable Review Of Systems Except As Marked, All Systems Reviewed And Found Negative. Cardiovascular: Negative for: Chest Pain, Palpitations Respiratory: Negative for: Shortness of Breath Neurological: Positive for: Confusion, Other (left upper and lower extremity weakness, facial droop). Negative for: Headache, Dizziness Physical Exam - Physical Exam Appears: Non-toxic, No Acute Distress Skin: Warm, Dry Head: Atraumatic, Normacephalic Eye(s): bilateral: EOMI, Other (bilateral irregular pupils about 1-2 mm. patient has a history of bilateral eye surgery.) Ear(s): Bilateral: Normal Nose: Normal Oral Mucosa: Moist Throat: Normal Neck: Normal ROM, Supple Chest: Symmetrical Respiratory: Normal Breath Sounds, No Rales, No Rhonchi, No Wheezing Gastrointestinal/Abdominal: Soft, No Tenderness Back: Normal Inspection, No CVA Tenderness, No Vertebral Tenderness Extremity: Normal ROM Neurological/Psych: Oriented x3, Normal Speech, Normal Cranial Nerves, Normal Motor, Normal Sensation, No Dysarthria, Other ((+)normal strength (5 out of 5) (+)normal finger to nose motion) Objective - Vital Signs/Intake and Output Vital Signs (last 24 hours): Temp Pulse Resp BP Pulse Ox 97.4 F L 103 H 20 126/61 97 12/07/16 15:59 12/07/16 15:59 12/07/16 15:59 12/07/16 15:59 12/07/16 15:59 - Labs Labs: 12/06/16 06:26 12/07/16 07:03 PT 12.9 SECONDS (9.7-12.2) H 12/04/16 23:55 INR 1.2 12/04/16 23:55 APTT 28 SECONDS (21-34) 12/04/16 23:55 Assessment and Plan - Assessment and Plan (Free Text) Plan: A Fib: On Eliquis and Cardizem HTN CVA For discharge today. F/U Dr. Nick Rausch
[2016-12-08 18:37] VITALS: O2SAT 95
== END 2016-12-07 19:05 | disposition home or self-care (01) | DRG 637 ==
LOC: C.ER 22:24 → C.6T 12-05 00:53
PROVIDERS: ADMIT Internal Medicine Nephrology; ATTEND Internal Medicine Nephrology
DX: E11.649 Type 2 diabetes mellitus with hypoglycemia without coma (principal); J18.9 Pneumonia, unspecified organism; N39.0 Urinary tract infection, site not specified; I48.91 Unspecified atrial fibrillation; I10 Essential (primary) hypertension; J45.909 Unspecified asthma, uncomplicated; E11.42 Type 2 diabetes mellitus with diabetic polyneuropathy